=== PATIENT | male | born 1945 | race Caucasian/White ===

== ENCOUNTER 2020-08-09 16:19 | Inpatient (IN) | payer MEDICARE, SELFPAY ==
[~2020-08-09] VITALS: Ht 160 cm; Wt 67.6 kg
[2020-08-09] MEDS ORDERED: AZITHROMYCIN 500 MG in DEXTROSE 5% 250 ML IV ONE (16:45)
[2020-08-09] MEDS ORDERED: DEXAMETHASONE 10 MG/ML VIAL IVP ONE (16:45)
--- NOTE | 2020-08-09 17:02 | NUR ---
Patient taken to bed 07
--- NOTE | 2020-08-09 17:32 | NUR ---
74 YEARS OLD MALE PRESENTS TO ER BY AMBULANCE FROM HOME WITH SOB, HYPOXIA 86% ROOM AIR, ASSOCIATED WITH ACCESSORY MUSCLE USE DENIES NAUSEA VOMITING.
[2020-08-09] MEDS ORDERED: AZITHROMYCIN 500 MG INJ VIAL IV ONE (17:36)
[2020-08-09] MEDS ORDERED: cefTRIAXone 1,000 MG VIAL ONE (17:36)
[2020-08-09 17:58] LABS: BASOPHILS % (AUTO) 0.1 % (0.0-2.0); HEMATOCRIT 34.3 % (36-52); HEMOGLOBIN 11.8 g/dL (12.0-18.0); LYMPHOCYTES # (AUTO) 0.6 K/uL (2.0-11.5); LYMPHOCYTES % (AUTO) 11.4 % (20.5-51.1); MEAN CORPUSCULAR HEMOGLOBIN 33 pg (27-31); MEAN CORPUSCULAR HGB CONC 34 g/dL (33-37); MEAN CORPUSCULAR VOLUME 94.5 fL (80-94); MONOCYTES # (AUTO) 0.4 K/uL (0.8-1.0); NEUTROPHILS # (AUTO) 4.1 K/uL (1.8-7.7); NEUTROPHILS % (AUTO) 81.5 % (42.2-75.2); PLATELET COUNT (AUTO) 216 K/uL (140-450); RED BLOOD CELL COUNT(AUTO) 3.63 MIL/uL (4.20-6.10); RED CELL DISTRIBUTION WIDTH 13.7 % (11.6-13.7); WHITE BLOOD COUNT (AUTO) 5.1 K/uL (4.8-10.8)
[2020-08-09 18:04] LABS: PROTHROMBIN TIME 19.3 secs (10.8-13.4)
--- NOTE | 2020-08-09 18:43 | NUR ---
+ covid-- critical value received from lab. Dr Kelley made aware
[2020-08-09 19:08] LABS: C-REACTIVE PROTEIN QUANT 13.9 mg/dL (0.0-0.9)
--- NOTE | 2020-08-09 19:16 | NUR ---
REPORT RECEIVED FROM KELSEY URBAN FOR CONTINUATION OF CARE.
[2020-08-09 19:17] LABS: ALBUMIN 3.1 g/dL (3.4-5.0); ANION GAP 17.1 (8-16); ASPARTATE AMINOTRANSFERASE 39 U/L (15-37); CARBON DIOXIDE 24.8 mmol/L (21-32); CHLORIDE 103 mmol/L (98-107); CREATININE 1.1 mg/dL (0.6-1.3); GLUCOSE 135 mg/dL (74-106); POTASSIUM 3.9 mmol/L (3.5-5.1); SODIUM SERUM 141 mmol/L (136-145); TOTAL BILIRUBIN 0.5 mg/dL (0.0-1.0); UREA NITROGEN, BLOOD 22 mg/dL (7-18)
--- NOTE | 2020-08-09 19:17 | NUR ---
REPORT GIVEN TO NURSE STRICKLAND ALL QUESTIONS ANSWERED.
--- NOTE | 2020-08-09 19:30 | NUR ---
74 y/o male presented to ED c/o SOB x 4 hr. Pt states he was at Urgent Care and oxygen level was in 80s. Pt c/o SOB increases w/ exertion. Pt has been tested for Covid, results still pending. A/O x 4 . RR even and mildly labored. BL clear lungs sounds throughout. +nonproductive cough. Oxygen level 94% on NRB. Pt resting in bed, locked and in lowest position, HOB elevated, side rail x2 for pt safety. VSS. No acute distress noted. pmh: HTN NKA
[2020-08-09] MEDS ORDERED: LORazepam 2 MG/ML VIAL IVP PRN (19:55)
[2020-08-09] MEDS ORDERED: HYDROcodone/APAP 5/325 MG 1 TAB TAB PO PRN (19:55)
[2020-08-09] MEDS ORDERED: ONDANSETRON 4 MG/2 ML VIAL IVP PRN (19:55)
[2020-08-09] MEDS ORDERED: MORPHINE SULFATE 2 MG/ML SYR IVP PRN (19:55)
[2020-08-09] MEDS ORDERED: ACETAMINOPHEN 325 MG TAB PO PRN (19:55)
[2020-08-09 20:25] LABS: CKMB RELATIVE INDEX 0.4 (0.0-2.5); CREATINE KINASE MB 1.4 ng/mL (0-3.6)
--- NOTE | 2020-08-09 22:04 | NUR ---
PER PT AUTHORIZATION , SPOKE W/ DAUGHTER FABIAN AND UPDATED HER ON PT STATUS. FOR CHANGE IN CONDITION CALL HER CELL [phone]
--- NOTE | 2020-08-10 | NUR ---
PT UNABLE TO PROVIDE URINE AT THIS TIME. URINAL AT BEDSIDE FOR ENCOURAGEMENT OF URINE SAMPLE.
--- NOTE | 2020-08-10 00:30 | NUR ---
PT STATES HE IS SOB , UPON ASSESSMENT PT SAO2 87% ON ROOM AIR, PT PLACED ON 4L NC , SAO2 93%. ERMD MADE AWARE.
--- NOTE | 2020-08-10 00:38 | NUR ---
PT SLEEPING IN BED, LOCKED AND IN LOWEST POSITION , HOB ELEVATED, SIDE RAIL X2. VSS. NO ACUTE DISTRESS NOTED. VISIBLE RISE AND FALL OF CHEST.
--- NOTE | 2020-08-10 03:04 | NUR ---
urine sample collected and walked to lab.
--- NOTE | 2020-08-10 03:15 | NUR ---
new urinal placed at pt bedside for his convenience.
[2020-08-10 03:51] LABS: APPEARANCE,URINE CLEAR (CLEAR); BILIRUBIN,URINE NEGATIVE (NEGATIVE); BLOOD, URINE NEGATIVE (NEGATIVE); COLOR,URINE YELLOW (YELLOW); LEUKOCYTE ESTERASE ,URINE NEGATIVE (NEGATIVE); NITRITE, URINE NEGATIVE (NEGATIVE); UGLUCOSE NEGATIVE (NEGATIVE)
--- NOTE | 2020-08-10 06:43 | NUR ---
PT SLEEPING ON RT SIDE IN BED, LOCKED AND IN LOWEST POSITION, HOB ELEVATED. VSS. NO ACUTE DISTRESS NOTED.
--- NOTE | 2020-08-10 07:27 | NUR ---
Report provided to KELSEY Trevino for transfer of care.
--- NOTE | 2020-08-10 07:30 | NUR ---
RECIEVED REPORT FROM KELSEY GOODMAN, TRANSFER OF CARE AT THIS TIME.
[2020-08-10] MEDS ORDERED: cefTRIAXone 1,000 MG VIAL ONE (08:23)
--- NOTE | 2020-08-10 08:35 | NUR ---
LAB AT BEDSIDE
[2020-08-10] MEDS: DEXAMETHASONE 4 MG/ML VIAL IVP SCH (08:36)
[2020-08-10] MEDS: ASPIRIN 81 MG TAB.CHEW PO SCH (08:36)
[2020-08-10] MEDS ORDERED: ENOXAPARIN 40 MG/0.4 ML SYR SUBQ SCH (09:00)
--- NOTE | 2020-08-10 09:00 | NUR ---
PT FINSIHED 80% OF BREAKFAST TRAY. BED LOCKED AND IN LOWEST POSITION. SIDE RAILS X2. PUBLIC WELFARE DIRECTOR IN PLACE. CALL LIGHT IN REACH, ALL PT NEEDS MET AT THIS TIME.
--- NOTE | 2020-08-10 09:48 | NUR ---
PATIENT HAS BEEN SCREENED AND CATEGORIZED MODERATE NUTRITION RISK. PATIENT WILL BE SEEN WITHIN 3-5 DAYS OF ADMISSION. 08/12/20 08/14/[address]
[2020-08-10] MEDS ORDERED: AZITHROMYCIN 500 MG INJ VIAL IV ONE (09:49)
[2020-08-10] MEDS: AZITHROMYCIN 500 MG in DEXTROSE 5% 250 ML IV SCH (09:54)
[2020-08-10 10:02] LABS: HEMATOCRIT 35.5 % (36-52); LYMPHOCYTES # (AUTO) 0.6 K/uL (2.0-11.5); MEAN CORPUSCULAR HEMOGLOBIN 32 pg (27-31); MEAN CORPUSCULAR HGB CONC 34 g/dL (33-37); MEAN CORPUSCULAR VOLUME 94.8 fL (80-94); MONOCYTES # (AUTO) 0.2 K/uL (0.8-1.0); MONOCYTES % (AUTO) 4.7 % (1.7-9.3); NEUTROPHILS # (AUTO) 3.7 K/uL (1.8-7.7); NEUTROPHILS % (AUTO) 81.3 % (42.2-75.2); PLATELET COUNT (AUTO) 233 K/uL (140-450); RED BLOOD CELL COUNT(AUTO) 3.74 MIL/uL (4.20-6.10); RED CELL DISTRIBUTION WIDTH 13.4 % (11.6-13.7); WHITE BLOOD COUNT (AUTO) 4.6 K/uL (4.8-10.8)
[2020-08-10 10:20] LABS: ALBUMIN 2.8 g/dL (3.4-5.0); ANION GAP 15.7 (8-16); ASPARTATE AMINOTRANSFERASE 33 U/L (15-37); CARBON DIOXIDE 25.3 mmol/L (21-32); CHLORIDE 103 mmol/L (98-107); GLUCOSE 195 mg/dL (74-106); SODIUM SERUM 140 mmol/L (136-145); TOTAL BILIRUBIN 0.4 mg/dL (0.0-1.0); UREA NITROGEN, BLOOD 27 mg/dL (7-18)
--- NOTE | 2020-08-10 10:27 | NUR ---
SOCIAL WORK NOTE: Patient's Orientation Unable To Assess Information Provided By AZEEM COX - DAUGHTER Comments SW WAS UNABLE TO MEET PATIENT AT BEDSIDE. SW COMPLETED ASSESSMENT WITH PATIENT'S DAUGHTER Lapping Machine Operator, Realtionship and Phone Number AZEEM COX DAUGHTER [phone] Healthcare Power of Healthcare Prof No Does Patient Have a POLST No Identifying Problems No Social Work Triggers Is A Social Work Consult Needed No Mandate Report Filed No Explanation Of Identifying Problems PATIENT IS A 74-YEAR-OLD MALE ADMITTED FOR COVID AND PNEUMONIA. PATIENT HAS PMHX OF HYPERTENSION. Admitted From Home Pre-Admission Level Of Functioning Status Independent/Ambulatory Prior Resources/Services Used In Last 12 Months No Prior Resources Used Prior DME No Prior DME Used Dialysis Comments N/A Living Situation Lives With Family House Patient Had Caregiver No Home Support No Caregiver Issues Financial Issues No Known Financial Issue Referral To The Financial Counselor Needed No Factors/Needs No D/C Needs Identified Pt/Rep Participated In Discharge Plan Yes Patient/Family Agress With Discharge Plan Yes Discharge Plan Comments TENTATIVE DISCHARGE PLAN IS FOR PATIENT TO RETURN HOME. DC Plan Status Initiated
--- NOTE | 2020-08-10 11:00 | NUR ---
PT RESTING IN BED. EQUAL CHEST RISE AND FALL. BED LOCKED AND IN LOWEST POSITION. SIDE RAILS X2. TELEMETRY MONITOR IN PLACE. CALL LIGHT IN REACH. ALL PT NEEDS MET AT THIS TIME.
--- NOTE | 2020-08-10 13:00 | NUR ---
PT FINSIHED 100% OF BREAKFAST TRAY. BED LOCKED AND IN LOWEST POSITION. SIDE RAILS X2. FOOD ORDER EXPEDITER IN PLACE. CALL LIGHT IN REACH, ALL PT NEEDS MET AT THIS TIME.
--- NOTE | 2020-08-10 16:00 | NUR ---
PT ASLEEP IN BED. EQUAL CHEST RISE AND FALL. BED LOCKED AND IN LOWEST POSITION/ SUPERVISOR SHIPPING IN PLACE. ALL PT NEEDS MET AT THIS TIME.
--- NOTE | 2020-08-10 19:04 | NUR ---
PT PROVIDED WITH DINNER TRAY
--- NOTE | 2020-08-10 19:15 | NUR ---
REPORT GIVEN TO KELSEY MORFIN. TRANSFER OF CARE AT THIS TIME.
--- NOTE | 2020-08-10 19:15 | NUR ---
report recieved from elton chris. transfer of care at this time.
--- NOTE | 2020-08-10 19:20 | NUR ---
pt is sitting up in bed, done eating dinner. pt placed back on nonrebreather at 10L. vss. bed locked in lowest position, side rails x2. all pt's needs met at this time.
[2020-08-10] MEDS: ENOXAPARIN 40 MG/0.4 ML SYR SUBQ SCH (20:50)
--- NOTE | 2020-08-10 21:00 | NUR ---
pt is resting, equal rise and fall of chest wall. vss. bed locked in lowest position, side rails x2. all pt's needs met at this time.
--- NOTE | 2020-08-10 23:08 | NUR ---
pt is sleeping, equal rise and fall of chest wall. vss. pt's needs met at this time. side rails x2, bed locked in lowest position.
--- NOTE | 2020-08-11 00:36 | NUR ---
PT IS RESTING IN STABLE CONDITION. VSS. EQUAL RISE AND FALL OF CHEST WALL. URINAL EMPTIED. ALL PT'S NEEDS MET AT THIS TIME. BED LOCKED IN LOWEST POSITION, SIDE RAILS X2.
--- NOTE | 2020-08-11 01:47 | NUR ---
PT IS RESTING IN STABLE CONDITION. VSS. EQUAL RISE AND FALL OF CHEST WALL. ALL PT'S NEEDS MET AT THIS TIME. BED LOCKED IN LOWEST POSITION, SIDE RAILS X2.
--- NOTE | 2020-08-11 03:25 | NUR ---
REPORT GIVEN TO
--- NOTE | 2020-08-11 03:35 | NUR ---
Patient will be admitted to care of . Admited to [facility]. Will go to room 116. Belongings list completed. Report to KELSEY LOPEZ.
--- NOTE | 2020-08-11 04:00 | NUR ---
ADMITTED FROM ER ADMITTED FROM ER, PT A&O X4, VERBAL, AMBULATORY, NO SOB/ DISTRESS ON NON REBREATABLE MASK ON 10L, NO C/O PAIN AT THIS TIME, VSS.
[2020-08-11 04:10] VITALS: BP 125/63
[2020-08-11 08:00] VITALS: BP 119/88
--- NOTE | 2020-08-11 08:00 | NUR ---
RECEIVED REPORT FROM THE TRANSFORMER TESTER FOR CONTINUITY OF CARE. PATIENT ALERT AWAKE ORIENTED X4, NOT IN ACUTE DISTRESS NOTED. HEPLOCK ON THE RIGHT FORE ARM DRY AND INTACT. ON NRB 10L NC SATURATION 93%. DENIES PAIN VERBALIZED THAT HE FEELS BETTER. WILL CONTINUE TO MONITOR.
--- NOTE | 2020-08-11 09:00 | NUR ---
ALL DUE MEDICATION GIVEN TOLERATED WELL, TITRATE 02 @ 8L NRB. WILL CONTINUE TO MONITOR.
[2020-08-11] MEDS: ASPIRIN 81 MG TAB.CHEW PO SCH (09:04)
[2020-08-11] MEDS: ENOXAPARIN 40 MG/0.4 ML SYR SUBQ SCH ×2 (09:05→20:32)
[2020-08-11] MEDS: AZITHROMYCIN 500 MG in DEXTROSE 5% 250 ML IV SCH (09:06)
[2020-08-11] MEDS: DEXAMETHASONE 4 MG/ML VIAL IVP SCH (09:06)
--- NOTE | 2020-08-11 13:18 | NUR ---
OXYGEN SATURATION CHECKED BY Liborio CHAIREZ RCP SUPPLEMENTAL OXYGEN AT 4 LPM VIA NC 92%
--- NOTE | 2020-08-11 13:20 | NUR ---
OXYGEN SATURATION CHECKED BY Liborio CHAIREZ RCP ROOM AIR SATURATION 88%
[2020-08-11 14:33] LABS: ALBUMIN 2.8 g/dL (3.4-5.0); TOTAL BILIRUBIN 0.3 mg/dL (0.0-1.0)
[2020-08-11 16:00] VITALS: BP 134/88
--- NOTE | 2020-08-11 19:33 | NUR ---
PATIENT RESTING IN BED ON 2L NC, ENDORSED TO THE BOBCAT OPERATOR FOR CONTINUITY OF CARE.
--- NOTE | 2020-08-11 19:34 | NUR ---
RECEIVED BEDSIDE REPORT FROM DAY RN. PT IS GREENLANDIC SPEAKING ONLY. AAOX4. ABLE TO MAKE NEEDS KNOWN. RESPIRATIONS ARE EQUAL AND UNLABORED ON 2L NC. SKIN IS INTACT. DX COVID 19 PNA. PT IS ON DOPLET ISOLATION. IV ON R FA 20G SL. PT IS ON COVID PROTOCOL. POC DISCUSSED WITH PT. SAFETY MEASURES ARE IN PLACE. BED IN LOWEST POSITION. PT ABLE TO AMBULATE. CALL LIGHT IS WITHIN REACH.
[2020-08-11 20:00] VITALS: BP 133/86
--- NOTE | 2020-08-11 20:32 | NUR ---
VSS. CRISTOFER LOVENOX GIVEN PER ORDERS. MED EDUCATION GIVEN PT VERBALIZED UNDERSTANDING. BELONGING DROPPED OFF BY FAMILY. GAVE PATIENT'S DATA SYSTEMS MANAGER AT BEDSIDE. ALL NEEDS MET. CALL LIGHT IS WITHIN REACH. WILL CONTINUE TO MONITOR FREQUENTLY.
[2020-08-11] MEDS ORDERED: PHARMACY TO DOSE MC PRN (22:45)
--- NOTE | 2020-08-11 23:00 | NUR ---
RECEIVED VERBAL CONSENT FOR PLASMA TRANSFUSION. ANOTHER RN, SEBLE WITNESS. ALL NEEDS MET.
--- NOTE | 2020-08-12 | NUR ---
ROUNDS MADE. PT IS SLEEPING COMFORTABLY IN BED WITH EYES CLOSED. CHEST RISE AND FALL NOTED. ALL SAFETY MEASURES ARE IN PLACE.
[2020-08-12] MEDS ORDERED: remdesivir COMMUNICATION ORDER 1 EA MISC MC PRN (00:15)
--- NOTE | 2020-08-12 02:00 | NUR ---
ROUNDS MADE. PT IS LAYING COMFORTABLY IN BED WITH EYES CLOSED. CHEST RISE AND FALL NOTED. NO S/S OF DISTRESS. CALL LIGHT IS WITHIN REACH.
--- NOTE | 2020-08-12 04:00 | NUR ---
VITAL SIGNS ARE WITHIN NORMAL LIMITS. ALL NEEDS MET. CALL LIGHT IS WITHIN REACH.
--- NOTE | 2020-08-12 07:30 | NUR ---
GAVE BEDSIDE REPORT TO DAY RN. PT ENDORSED IN STABLE CONDITION.
[2020-08-12 08:00] VITALS: BP 141/80
--- NOTE | 2020-08-12 08:00 | NUR ---
RECEIVED PATIENT FROM STRAPPER FOR CONTINUITY OF CARE. PATIENT ALERT AWAKE ORIENTED X4, NOT IN DISTRESS NOTED. INITIAL ASSESSMENT INITIATED. ON 2L NASAL CANNULA SATURATING 89%, PATIENT VERBALIZED THAT HE FEELS BETTER TODAY. NO SOB NOTED.
[2020-08-12 09:50] LABS: ALBUMIN 2.8 g/dL (3.4-5.0); BILIRUBIN,DIRECT 0.1 mg/dL (0.0-0.3); TOTAL BILIRUBIN 0.4 mg/dL (0.0-1.0)
[2020-08-12] MEDS: DEXAMETHASONE 4 MG/ML VIAL IVP SCH (09:50)
[2020-08-12] MEDS: ASPIRIN 81 MG TAB.CHEW PO SCH (09:50)
[2020-08-12] MEDS: AZITHROMYCIN 500 MG in DEXTROSE 5% 250 ML IV SCH (09:51)
[2020-08-12] MEDS: ENOXAPARIN 40 MG/0.4 ML SYR SUBQ SCH ×2 (09:52→20:46)
[2020-08-12] MEDS ORDERED: remdesivir CLINICAL MONITORING 1 EA MISC MC PRN (11:45)
[2020-08-12] MEDS ORDERED: REMDESIVIR (EUA) 200 MG in NACL 0.9% 100 ML IV SCH (13:00)
--- NOTE | 2020-08-12 13:30 | NUR ---
REMDESIVIR STARTED AND INFUSING WELL, WILL CONTINUE TO MONITOR.
--- NOTE | 2020-08-12 15:50 | NUR ---
COMFORT VERDUGO: RECEIVED ORDER FOR HOME O2, FAXED ORDER TO [facility]. WILL FOLLOW UP. Addendum: 08/12/20 at 1650 by Cristal Tran CM COMFORT VERDUGO: RECEIVED A CALL FROM MARII MAHAJAN FROM [facility] [phone] SHE IS WORKING ON THE ORDER FOR HOME O2. Addendum: 08/13/20 at 0911 by Cristal Tran CM COMFORT VERDUGO: CALLED MARII MAHAJAN FROM [facility] TO FOLLOW UP ON O2 ORDER NO ANSWER BUT LEFT A VOICEMAIL Addendum: 08/13/20 at 1243 by Cristal Tran COMFORT VERDUGO: STILL NO ANSWER FROM . CALLED [employer] [place] [phone] TO GET AN UPDATE ON HOME O2. SPOKE CRYSTAL AT [facility] PATIENT HOME O2 HAS BEEN DELIVERED. Addendum: 08/13/20 at 1251 by Cristal Tran COMFORT VERDUGO: VERIFIED WITH PATIENTS THAT OXYGEN HAS BEEN DELIVERED. NOTIFIED KELSEY SANDERS THAT HOME IS DELIVERED TO PATIENTS HOME.
[2020-08-12 16:00] VITALS: BP 146/90
--- NOTE | 2020-08-12 17:30 | NUR ---
CHECKED ON PATIENT. PATIENT IS STABLE. NO SIGNS OF RESPIRATORY DISTRESS NOTED. WILL CONTINUE TO MONITOR.
--- NOTE | 2020-08-12 19:16 | NUR ---
REPORT GIVEN TO THE NEXT SHIFT FOR CONTINUITY OF CARE. IN STABLE CONDITION.
--- NOTE | 2020-08-12 19:30 | NUR ---
RECEIVED BEDSIDE REPORT FROM DAY SHIFT NURSE FOR CONTINUITY OF CARE. PT IS AWAKE AND ALERT, PAKISTANI SPEAKING. A&OX4. ON 2L O2 NC WITH BREATHING UNLABORED. PT IS AMBULATORY INDEPENDENTLY. BOWEL SOUNDS ARE PRESENT. SKIN IS WARM, DRY AND INTACT. IV IS IN THE RIGHT FOREARM 20 GAUGE SALINE LOCKED. PLAN OF CARE DISCUSSED. PT IS STABLE AT THIS TIME.
[2020-08-12 20:00] VITALS: BP 133/86
--- NOTE | 2020-08-12 21:30 | NUR ---
PT IS AWAKE AND LAYING IN SEMI FOWLERS POSITION. PT HAS NO RESPIRATORY DISTRESS. ON 4L O2 NC WITH BREATHING UNLABORED. NO COUGHING OR SOB. WILL CONTINUE TO MONITOR.
--- NOTE | 2020-08-12 23:30 | NUR ---
ROUNDED ON PT. HE IS UP TO THE RESTROOM. GAIT IS STEADY. PT IS NOW BACK TO BED. RESTING IN SEMI FOWLERS POSITION. NO DISTRESS NOTED.
--- NOTE | 2020-08-13 01:30 | NUR ---
PT IS ASLEEP. IN SEMI FOWLERS POSITION. CHEST RISE AND FALL IS SYMMETRICAL. PT IS STABLE. IV IS SALINE LOCKED. BED IS IN THE LOWEST POSITION AND CALL LIGHT IS WITHIN REACH.
--- NOTE | 2020-08-13 03:01 | NUR ---
CALLED BLOOD BANK TO SEE IF THE CONVALESCENT PLASMA WAS READY AND THE TECH SAID HE WOULD CALL ME BACK WHEN HE FINDS OUT IF THE PLASMA IS READY. WILL WAIT FOR CALL BACK.
--- NOTE | 2020-08-13 03:59 | NUR ---
SPOKE TO BLOOD BANK AND HE INFORMED ME THAT THE CONVALESCENT PLASMA WILL BE READY SHORTLY. WILL RESOURCE EFFICIENCY MANAGER ONCE THE TUBING IS SET UP AND VS ARE TAKEN.
[2020-08-13 04:00] VITALS: BP 139/87
--- NOTE | 2020-08-13 05:30 | NUR ---
PT IS ASLEEP IN SEMI FOWLERS POSITION. PT IS STABLE. BREATHING IS UNLABORED. NO DISTRESS NOTED.
--- NOTE | 2020-08-13 06:30 | NUR ---
BLOOD BANK CALLED AND SAID THAT THE CONV. PLASMA WAS READY. WILL ENDORSE TO DAY SHIFT NURSE. EVERYTHING IS SET UP FOR PLASMA ADMINISTRATION.
--- NOTE | 2020-08-13 07:05 | NUR ---
ENDORSED PT TO DAY SHIFT NURSE FOR CONTINUITY OF CARE. PT IS STABLE AT THIS TIME. BREATHING IS UNLABORED. PLAN OF CARE DISCUSSED.
--- NOTE | 2020-08-13 07:10 | NUR ---
RECEIVED REPORT FROM NIGHTSHIFT NURSE. PT RESTING IN BED. ABLE TO MAKE NEEDS KNOWN. RESPIRATIONS EVEN AND UNLABORED WITH NO SOB OR RESPIRATORY DISTRESS. SKIN WARM AND DRY TO TOUCH. IV IN RFA 22G IS CLEAN, DRY, AND INTACT. SAFETY MEASURES IN PLACE. WILL CONTINUE TO MONITOR
[2020-08-13 08:00] VITALS: BP 147/86
[2020-08-13] MEDS: ENOXAPARIN 40 MG/0.4 ML SYR SUBQ SCH ×2 (09:00→20:38)
[2020-08-13] MEDS: ASPIRIN 81 MG TAB.CHEW PO SCH (09:00)
[2020-08-13] MEDS: DEXAMETHASONE 4 MG/ML VIAL IVP SCH (09:00)
[2020-08-13 10:13] LABS: BASOPHILS % (AUTO) 0.2 % (0.0-2.0); HEMATOCRIT 36.6 % (36-52); HEMOGLOBIN 12.5 g/dL (12.0-18.0); LYMPHOCYTES # (AUTO) 1.1 K/uL (2.0-11.5); LYMPHOCYTES % (AUTO) 12.6 % (20.5-51.1); MEAN CORPUSCULAR HEMOGLOBIN 32 pg (27-31); MEAN CORPUSCULAR HGB CONC 34 g/dL (33-37); MEAN CORPUSCULAR VOLUME 93.5 fL (80-94); MONOCYTES # (AUTO) 0.7 K/uL (0.8-1.0); MONOCYTES % (AUTO) 7.7 % (1.7-9.3); NEUTROPHILS # (AUTO) 7.2 K/uL (1.8-7.7); NEUTROPHILS % (AUTO) 79.5 % (42.2-75.2); PLATELET COUNT (AUTO) 351 K/uL (140-450); RED BLOOD CELL COUNT(AUTO) 3.91 MIL/uL (4.20-6.10); RED CELL DISTRIBUTION WIDTH 13.3 % (11.6-13.7)
[2020-08-13 10:15] LABS: ALBUMIN 2.9 g/dL (3.4-5.0); ANION GAP 12.8 (8-16); ASPARTATE AMINOTRANSFERASE 31 U/L (15-37); CARBON DIOXIDE 27.3 mmol/L (21-32); CHLORIDE 104 mmol/L (98-107); CREATININE 1.1 mg/dL (0.6-1.3); GLUCOSE 98 mg/dL (74-106); POTASSIUM 4.1 mmol/L (3.5-5.1); SODIUM SERUM 140 mmol/L (136-145); TOTAL BILIRUBIN 0.5 mg/dL (0.0-1.0); UREA NITROGEN, BLOOD 29 mg/dL (7-18)
--- NOTE | 2020-08-13 10:18 | NUR ---
ADMINISTERED SCHED MED PRESCRIBED PER MD ORDER. PT TOLERATED WELL. MEDICATION EDUCATION PERFORMED. PT VERBALIZE UNDERSTANDING. SAFETY MEASURES IN PLACE. WILL CONTINUE TO MONITOR
[2020-08-13 10:33] LABS: ALBUMIN 2.9 g/dL (3.4-5.0); BILIRUBIN,DIRECT 0.1 mg/dL (0.0-0.3); TOTAL BILIRUBIN 0.4 mg/dL (0.0-1.0)
[2020-08-13] MEDS: AZITHROMYCIN 500 MG in DEXTROSE 5% 250 ML IV SCH (10:51)
--- NOTE | 2020-08-13 10:56 | NUR ---
ADMINISTERED SCHED MED PRESCRIBED PER MD ORDER. PT TOLERATED WELL. MEDICATION EDUCATION PERFORMED. PT VERBALIZE UNDERSTANDING. SAFETY MEASURES IN PLACE. WILL CONTINUE TO MONITOR
--- NOTE | 2020-08-13 12:00 | NUR ---
CONSENT GIVEN TO BLOOD BANK FOR PLASMA. VERIFIED WITH TRUCK DRIVER HEAVY. PRE TRANSFUSE VITALS OBTAINED. VERIFIED BLOOD WITH SECOND NURSE. STARTED TRANSFUSION. SAFETY MEASURES IN PLACE. WILL CONTINUE TO MONITOR
--- NOTE | 2020-08-13 12:40 | NUR ---
PT COMPLETED ONE UNIT OF PLASMA NO SIGNS OF DISTRESS NOTED. SAFETY MEASURES IN PLACE. WILL CONTINUE TO MONITOR
--- NOTE | 2020-08-13 12:42 | NUR ---
LATE ENTRY ROCEPHIN END TIME 1808 08/09/20 AND AZYTHROMYIFRANKY END TIME IS 1745 09/06/20
[2020-08-13] MEDS: REMDESIVIR (EUA) 100 MG in NACL 0.9% 100 ML IV SCH (13:10)
--- NOTE | 2020-08-13 13:16 | NUR ---
ADMINISTERED SCHED MED PRESCRIBED PER MD ORDER. PT TOLERATED WELL. MEDICATION EDUCATION PERFORMED. PT VERBALIZE UNDERSTANDING. SAFETY MEASURES IN PLACE. WILL CONTINUE TO MONITOR
--- NOTE | 2020-08-13 15:30 | NUR ---
PT HOME O2 AT IS AT HOME. EDUCATED PT THAT WHEN HE DISCHARGES, HIS FAMILY WILL NEED TO BRING IT. PT VERBALIZED UNDERSTANDING. SAFETY MEASURES IN PLACE. WILL CONTINUE TO MONITOR
[2020-08-13 16:00] VITALS: BP 136/84
--- NOTE | 2020-08-13 17:15 | NUR ---
PT RESTING IN BED. ABLE TO MAKE NEEDS KNOWN. RESPIRATIONS EVEN AND UNLABORED WITH NO SOB OR RESPIRATORY DISTRESS. SAFETY MEASURES IN PLACE. WILL CONTINUE TO MONITOR
--- NOTE | 2020-08-13 19:30 | NUR ---
ENDORSED TO NIGHTSHIFT FOR CONTINUITY OF CARE. PT IS STABLE
--- NOTE | 2020-08-13 19:35 | NUR ---
RECEIVED BEDSIDE REPORT FROM DAY SHIFT NURSE FOR CONTINUITY OF CARE. PT IS AWAKE AND ALERT. A&OX4. BREATHING IS UNLABORED. NC IN PLACE WITH 4L O2. PT IS AMBULATORY INDEPENDENTLY. SKIN IS WARM, DRY, AND INTACT. IV IS IN THE RIGHT FOREARM 22 GAUGE SALINE LOCKED. PLAN OF CARE DISCUSSED. PT IS STABLE.
[2020-08-13 20:00] VITALS: BP 150/97
--- NOTE | 2020-08-13 21:30 | NUR ---
ROUNDED ON PT. HE IS UP TO THE RESTROOM. GAIT IS STEADY. NO DISTRESS NOTED. PT HAD A BM. PT IS BACK IN BED.
--- NOTE | 2020-08-13 23:30 | NUR ---
PT IS SLEEPING. CHEST RISE AND FALL IS SYMMETRICAL. NO RESPIRATORY DISTRESS NOTED. IV IS SALINE LOCKED. PT IS STABLE.
--- NOTE | 2020-08-14 01:30 | NUR ---
ROUNDED ON PT. PT WAS ASLEEP BUT EASILY AWOKEN BY NOISE. PT REQUESTED FOR WATER AND A BLANKET. NEEDS WERE MET. PT IS BACK TO SLEEP IN SUPINE POSITION. BREATHING IS UNLABORED. NO DISTRESS NOTED.
--- NOTE | 2020-08-14 03:13 | NUR ---
PT IS STABLE. LAYING IN BED. AWAKE AND ALERT. ON 4L O2 NC. BREATHING IS REGULAR. WILL CONTINUE TO MONITOR.
[2020-08-14 04:00] VITALS: BP 137/86
--- NOTE | 2020-08-14 05:30 | NUR ---
MADE ROUNDS ON PT. HE IS AWAKE AND ALERT. PT STATES HE IS FINE. BED IS IN THE LOWEST POSITION AND CALL LIGHT IS WITHIN REACH. PT APPEARS TO BE STABLE AND NO SIGNS OF DISTRESS.
--- NOTE | 2020-08-14 07:30 | NUR ---
ENDORSED PT TO DAY SHIFT NURSE FOR CONTINUITY OF CARE. PT IS STABLE AT THIS TIME. PLAN OF CARE DISCUSSED.
--- NOTE | 2020-08-14 07:35 | NUR ---
RECEIVED REPORT FROM NIGHTSHIFT NURSE. PT RESTING IN BED. ABLE TO MAKE NEEDS KNOWN. RESPIRATIONS EVEN AND UNLABORED WITH NO SOB OR RESPIRATORY DISTRESS. SKIN WARM AND DRY TO TOUCH. IV SITE IN RFA 22G IS CLEAN, DRY, AND INTACT. SAFETY MEASURES IN PLACE. WILL CONTINUE TO MONITOR
[2020-08-14 08:00] VITALS: BP 116/83
[2020-08-14 08:50] LABS: ALBUMIN 2.9 g/dL (3.4-5.0); BILIRUBIN,DIRECT 0.1 mg/dL (0.0-0.3); TOTAL BILIRUBIN 0.6 mg/dL (0.0-1.0)
[2020-08-14] MEDS: ASPIRIN 81 MG TAB.CHEW PO SCH (09:57)
[2020-08-14] MEDS: ENOXAPARIN 40 MG/0.4 ML SYR SUBQ SCH ×2 (09:59→21:09)
[2020-08-14] MEDS: DEXAMETHASONE 4 MG/ML VIAL IVP SCH (10:01)
--- NOTE | 2020-08-14 10:14 | NUR ---
ADMINISTERED SCHED MED PRESCRIBED PER MD ORDER. PT TOLERATED WELL. MEDICATION EDUCATION PERFORMED. PT VERBALIZED UNDERSTANDING. SAFETY MEASURES IN PLACE. WILL CONTINUE TO MONITOR
[2020-08-14] MEDS: AZITHROMYCIN 500 MG in DEXTROSE 5% 250 ML IV SCH (11:01)
--- NOTE | 2020-08-14 11:08 | NUR ---
ADMINISTERED SCHED MED PRESCRIBED PER MD ORDER. PT TOLERATED WELL. MEDICATION EDUCATION PERFORMED. PT APHASIC AND UNABLE VERBALIZE UNDERSTANDING. SAFETY MEASURES IN PLACE. WILL CONTINUE TO MONITOR
[2020-08-14] MEDS: REMDESIVIR (EUA) 100 MG in NACL 0.9% 100 ML IV SCH (13:23)
--- NOTE | 2020-08-14 13:28 | NUR ---
ADMINISTERED SCHED MED PRESCRIBED PER MD ORDER. PT TOLERATED WELL. MEDICATION EDUCATION PERFORMED. PT VERBALIZED UNDERSTANDING. SAFETY MEASURES IN PLACE. WILL CONTINUE TO MONITOR
[2020-08-14 16:00] VITALS: BP 124/85
--- NOTE | 2020-08-14 17:04 | NUR ---
HOURLY ROUNDING. PT RESTING IN BED. ABLE TO MAKE NEEDS KNOWN. RESPIRATIONS EVEN AND UNLABORED WITH NO SOB OR RESPIRATORY DISTRESS. SKIN WARM AND DRY TO TOUCH. SAFETY MEASURES IN PLACE. WILL CONTINUE TO MONITOR
--- NOTE | 2020-08-14 18:30 | NUR ---
PT RESTING IN BED EATING DINNER. ABLE TO MAKE NEEDS KNOWN. RESPIRATIONS EVEN AND UNLABORED WITH NO SOB OR RESPIRATORY DISTRESS. SKIN WARM AND DRY TO TOUCH. SAFETY MEASURES IN PLACE. WILL CONTINUE TO MONITOR
--- NOTE | 2020-08-14 19:12 | NUR ---
ENDORSED TO NIGHTSHIFT FOR CONTINUITY OF CARE. PT IS STABLE
--- NOTE | 2020-08-14 19:30 | NUR ---
RECEIVED ENDORSEMENT FROM RN DAY NURSE MARILYN AT BEDSIDE FOR CONTINUITY OF CARE, PT IN STABLE CONDITION.
[2020-08-14 20:00] VITALS: BP 117/82
--- NOTE | 2020-08-14 21:09 | NUR ---
08/14/2020 RD INITIAL ASSESSMENT COMPLETED PLEASE REFER TO NUTRITION ASSESSMENT UNDER CARE ACTIVITY FOR ESTIMATED NUTRITIONAL NEEDS. CONTINUE REGULAR DIET ORDERED RD TO FOLLOW-UP IN 5-7 DAYS PATIENT IS LOW RISK. LAVELL CAPPS RD
--- NOTE | 2020-08-14 21:30 | NUR ---
PT IN BED RESTING, AOX4 AND MOSTLY GUAMANIAN SPEAKING NO C/O OF PAIN OR SOB. PT IS ON 4 LITERS N/C. PT GIVEN ORDERED LOVENOX SQ, PT RECEIVED EDUCATION REGARDING MEDICATION, PT VERBALIZED UNDERSTANDING. N/S RUNNING TO KVO, ALL UNIVERSAL FALLS PRECAUTIONS IN PLACE.
--- NOTE | 2020-08-15 | NUR ---
ROUNDS DONE, PT SLEEPING IN BED.
--- NOTE | 2020-08-15 03:02 | NUR ---
ROUNDS DONE, PT CONTINUES TO SLEEP IN BED, NO S/S OF PAIN OR DISTRESS NOTED.
[2020-08-15 04:00] VITALS: BP 136/93
--- NOTE | 2020-08-15 05:30 | NUR ---
PT IN BED ASLEEP WITH 4 LITERS N/C IN PLACE. NO C/O VOICED.
--- NOTE | 2020-08-15 06:00 | NUR ---
FINGERSTICK IS 372, PT GIVEN 10 UNITS HUMALOG PER S/S. Addendum: 08/15/20 at 0847 by Connie Bansal RN WRONG PT CHART. PT DOES NOT NEED F/S.
--- NOTE | 2020-08-15 07:30 | NUR ---
RECEIVED REPORT FROM COMMUNITY SUPPORT PROFESSIONAL RN PT IS STABLE PT REPORTED IV CAME OUT WHILE USING RESTROOM. NO IV ACCESS AT THIS TIME. WILL CONTINUE WITH POC.
--- NOTE | 2020-08-15 09:30 | NUR ---
SCHEDULED MEDICATION GIVEN PT REMAINS ON 4L NC. IN NO DISTRESS. LUNG SOUNDS CLEAR, ABD IS SOFT AND NONTENDER WITH ACTIVE BS X 4. ATE 100% OF BREAKFAST. CALL LIGHT WITHIN REACH. SAFETY MEASURES IN PLACE. .
[2020-08-15] MEDS: DEXAMETHASONE 4 MG/ML VIAL IVP SCH (10:15)
[2020-08-15] MEDS: ASPIRIN 81 MG TAB.CHEW PO SCH (10:16)
[2020-08-15] MEDS: ENOXAPARIN 40 MG/0.4 ML SYR SUBQ SCH ×2 (10:21→22:56)
[2020-08-15 10:35] LABS: ALBUMIN 2.9 g/dL (3.4-5.0); BILIRUBIN,DIRECT 0.1 mg/dL (0.0-0.3); TOTAL BILIRUBIN 0.3 mg/dL (0.0-1.0)
--- NOTE | 2020-08-15 12:50 | NUR ---
NEW IV ACCESS TO RIGHT FA 22 G INSERTED WITH FIRST ATTEMPT. PT NOW RECEIVING REMDESIRVER
[2020-08-15] MEDS: REMDESIVIR (EUA) 100 MG in NACL 0.9% 100 ML IV SCH (13:08)
--- NOTE | 2020-08-15 14:20 | NUR ---
WATCHING TV ALL NEEDS MET
[2020-08-15 14:39] LABS: CHLORIDE 104 mmol/L (98-107); CREATININE 1.1 mg/dL (0.6-1.3); GLUCOSE 105 mg/dL (74-106); SODIUM SERUM 140 mmol/L (136-145); UREA NITROGEN, BLOOD 34 mg/dL (7-18)
[2020-08-15 14:55] LABS: ANION GAP 13.9 (8-16); CARBON DIOXIDE 26.1 mmol/L (21-32)
[2020-08-15 16:00] VITALS: BP 128/84
--- NOTE | 2020-08-15 16:20 | NUR ---
PT RESTING IN BED ALL NEEDS MET.
--- NOTE | 2020-08-15 19:30 | NUR ---
RECEIVED ENDORSEMENT FROM KELSEY CASTELLANOS AT BEDSIDE FOR CONTINUITY OF CARE, PT IN STABLE CONDITION.
--- NOTE | 2020-08-15 19:30 | NUR ---
PT ENDORSED TO SHELF DRIER OPERATOR RN PT IS STABLE SPOKE WITH DR. NORIEGA AND STATED PT WILL BE DISCHARGED BERNARDINO. DAUGHTER FABIAN AND PATIENT NOTIFIED.
--- NOTE | 2020-08-15 20:00 | NUR ---
PT IN BED RESTING WITH EYES CLOSED NO S/S OF PAIN OR DISTRESS NOTED. HE HAS 02 AT 2 LITERS VIA N/C. PT HAS A R F/A 22G INTACT AND RUNNING 10MLS/TKO. V/S FOLLOWS: T 98.7 P 78 R 20 B/P 99/70 02 95%. ALL ORDERED PROTOCOLS IN PLACE.
--- NOTE | 2020-08-15 21:40 | NUR ---
PT IN BED RESTING WITH EYES CLOSED. HE WAS GIVEN ORDERED LOVENOX SHOT, EDUCATION REGARDING MEDICATION AND SIDE EFFECTS PROVIDED AT BEDSIDE, PT VERBALIZED UNDERSTANDING.
[2020-08-16] VITALS: BP 97/66
--- NOTE | 2020-08-16 04:00 | NUR ---
PT IN BED NO C/O VOICED V/S FOLLOWS: T 99.0 P 78 R 18 B/P 97/66 02 92%. ALL UNIVERSAL FALLS PREVENTION IN PLACE.
[2020-08-16 08:00] VITALS: BP 121/81
--- NOTE | 2020-08-16 08:00 | NUR ---
RECEIVED REPORT FROM THE NIGHT FOR CONTINUITY OF CARE. PATIENT ALERT AWAKE ORIENTED X4, NOT IN DISTRESS NOTED. ON 2L NC SATURATION 98%. DENIES PAIN. WITH IVF ON GOING AND INFUSING WELL. WILL CONTINUE TO MONITOR.
[2020-08-16 08:48] LABS: BASOPHILS % (AUTO) 0.2 % (0.0-2.0); EOSINOPHILS # (AUTO) 0.3 K/uL (0-0.4); EOSINOPHILS % (AUTO) 2.7 % (0.0-4.0); HEMATOCRIT 35.4 % (36-52); HEMOGLOBIN 12.1 g/dL (12.0-18.0); LYMPHOCYTES # (AUTO) 1.3 K/uL (2.0-11.5); LYMPHOCYTES % (AUTO) 13.4 % (20.5-51.1); MEAN CORPUSCULAR HEMOGLOBIN 32 pg (27-31); MEAN CORPUSCULAR HGB CONC 34 g/dL (33-37); MEAN CORPUSCULAR VOLUME 94.2 fL (80-94); MONOCYTES # (AUTO) 0.9 K/uL (0.8-1.0); MONOCYTES % (AUTO) 9.2 % (1.7-9.3); NEUTROPHILS # (AUTO) 7.3 K/uL (1.8-7.7); NEUTROPHILS % (AUTO) 74.5 % (42.2-75.2); PLATELET COUNT (AUTO) 401 K/uL (140-450); RED BLOOD CELL COUNT(AUTO) 3.76 MIL/uL (4.20-6.10); RED CELL DISTRIBUTION WIDTH 13.6 % (11.6-13.7); WHITE BLOOD COUNT (AUTO) 9.8 K/uL (4.8-10.8)
[2020-08-16 09:05] LABS: ALBUMIN 2.7 g/dL (3.4-5.0); ANION GAP 10.2 (8-16); ASPARTATE AMINOTRANSFERASE 21 U/L (15-37); BILIRUBIN,DIRECT 0.1 mg/dL (0.0-0.3); CARBON DIOXIDE 27.9 mmol/L (21-32); CHLORIDE 105 mmol/L (98-107); CREATININE 1.2 mg/dL (0.6-1.3); GLUCOSE 103 mg/dL (74-106); POTASSIUM 4.1 mmol/L (3.5-5.1); SODIUM SERUM 139 mmol/L (136-145); TOTAL BILIRUBIN 0.4 mg/dL (0.0-1.0); UREA NITROGEN, BLOOD 30 mg/dL (7-18)
[2020-08-16] MEDS: ASPIRIN 81 MG TAB.CHEW PO SCH (09:29)
[2020-08-16] MEDS: DEXAMETHASONE 4 MG/ML VIAL IVP SCH (09:30)
[2020-08-16] MEDS: ENOXAPARIN 40 MG/0.4 ML SYR SUBQ SCH (09:31)
--- NOTE | 2020-08-16 12:00 | NUR ---
PATIENT RESTING IN BED. SEEN BY DR. MOREAU WITH DC ORDER. WILL CONTINUE TO MONITOR.
[2020-08-16] MEDS: REMDESIVIR (EUA) 100 MG in NACL 0.9% 100 ML IV SCH (12:57)
[2020-08-16] MEDS ORDERED: DEC4 PO (15:28)
[2020-08-16] MEDS ORDERED: APIX2.5 PO (15:29)
--- NOTE | 2020-08-16 16:48 | NUR ---
PATIENT DC HOME VIA WHEELCHAIR WITH DC INSTRUCTION AND PRESCRIPTION GIVEN AND VERBALIZED UNDERSTANDING. IN STABLE CONDITION.
== END 2020-08-16 16:54 | disposition home or self-care (01) | DRG 177 ==
LOC: MED 16:19 → MMU 20:00 → MTU 08-11 02:26
PROVIDERS: ADMIT Hospitalist; ATTEND Hospitalist
PROC: XW033E5 Introduction of Remdesivir Anti-infective into Peripheral Vein, Percutaneous Approach, New Technology Group 5 (ICD-10-PCS; principal; 2020-08-12)
DX: U07.1 COVID-19 (principal); J96.01 Acute respiratory failure with hypoxia; J12.82 Pneumonia due to coronavirus disease 2019; D68.69 Other thrombophilia; I10 Essential (primary) hypertension
CPT/HCPCS: 36415; 71045; 80048; 80053; 80076; 81003; 82550; 82553; 82728; 83615; 83735; 83880; 84484; 85025; 85379; 85384; 85610; 85730; 86140; 86900; 86901; 87040; 87086; 93005; 96365; 96375; 99291; J0456; J0696; J1100; J1650; J7030; J7060